=== PATIENT | female | born 1955 | race Caucasian/White ===

== ENCOUNTER 2018-02-22 06:59 | Day surgery (SDC) | payer OTHER ==
[2018-02-22] MEDS ORDERED: Propofol 200 MG/20 ML SDV ONE (07:17)
[2018-02-22] MEDS ORDERED: fentaNYL 100 MCG/2 ML SDV ONE (07:17)
[2018-02-22] MEDS ORDERED: Midazolam 1 MG/ML 2 ML SDV ONE (07:17)
[2018-02-22] MEDS ORDERED: Lidocaine 2% 5 ML SDV ONE (07:17)
[2018-02-22] MEDS ORDERED: Ketorolac 30 MG/ML SDV ONE (07:17)
[2018-02-22] MEDS ORDERED: Ondansetron 4 MG/2 ML SDV ONE (07:17)
--- NOTE | 2018-02-22 07:37 | PCM.PREANE ---
Preanesthetic Assessment - Anesthesia/Transfusion/Family Hx Anesthesia History: Prior Anesthesia Without Reaction Family History of Anesthesia Reaction: No Transfusion History: No Prior Transfusion(s) Intubation History: Unknown - Review of Systems General: No Symptoms Pulmonary: No Symptoms Cardiovascular: No Symptoms Gastrointestinal: No Symptoms Neurological: No Symptoms Other: Reports: None - Physical Assessment O2 Sat by Pulse Oximetry: 96 Respiratory Rate: 16 Vital Signs: Last Vital Signs Temp 36.5 C 02/22/18 07:16 Pulse 89 02/22/18 07:16 Resp 16 02/22/18 07:16 BP 149/71 H 02/22/18 07:16 Pulse Ox 96 02/22/18 07:16 Height: 1.6 m Weight: 71.214 kg ASA Class: 2 Mental Status: Alert & Oriented x3 Airway Class: Mallampati = 2 Dentition: Reports: Partial (upper right and left, lower middle), [place](s) (x2 upper front) Thyro-Mental Finger Breadths: 3 Mouth Opening Finger Breadths: 2 ROM/Head Extension: Full Lungs: Clear to Auscultation, Normal Respiratory Effort Cardiovascular: Regular Rate, Regular Rhythm - Allergies Allergies/Adverse Reactions: Allergies Allergy/AdvReac Type Severity Reaction Status Date / Time Sulfa (Sulfonamide Allergy Cannot Verified 02/20/18 13:52 Antibiotics) Remember - Blood Blood Available: No - Anesthesia Plan Pre-Op Medication Ordered: None - Acknowledgements Anesthesia Type Planned: MAC Pt an Appropriate Candidate for the Planned Anesthesia: Yes Alternatives and Risks of Anesthesia Discussed w Pt/Guardian: Yes Pt/Guardian Understands and Agrees with Anesthesia Plan: Yes PreAnesthesia Questionnaire Other HEENT History: wears glasses Psychiatric History: Reports: Anxiety, Depression Oncologic (Cancer) History: Reports: Cervix - Past Surgical History HEENT Surgical History: Reports: Tonsillectomy Female Surgical History: Reports: Hysterectomy Other Oncologic Surgeries/Procedures: hysterectomy - SUBSTANCE USE Smoking Status *Q: Former Smoker Tobacco Use Within Last Twelve Months: No Recreational Drug Use History: No - HOME MEDS Home Medications: Home Meds Desvenlafaxine Succinate [Desvenlafaxine Succinate ER] 100 mg PO DAILY 02/20/18 [History] PARoxetine HCl [Paxil] 20 mg PO BID 02/20/18 [History] - CURRENT (IN HOUSE) MEDS Current Meds: Current Medications Hydrocodone Bitart/Acetaminophen (Snyder 325-5 Mg) 1 tab PO Q4H PRN PRN Reason: Pain Bupivacaine HCl/Epinephrine Bitart (Marcaine 0.25%/Epinephrine 1:200,000) 10 ml INJECT ONETIME ONE Stop: 02/22/18 08:01 Cefazolin Sodium/Dextrose 2 gm (/ Premix) 50 mls @ 100 mls/hr IV ONETIME ONE Stop: 02/22/18 08:29 Lactated Ringer's (Ringers, Lactated) 1,000 mls @ 125 mls/hr IV ASDIRECTED MAKENNA Last Admin: 02/22/18 07:17 Dose: 125 mls/hr Discontinued Medications Fentanyl (Sublimaze) Confirm Administered Dose 100 mcg .ROUTE .STK-MED ONE Stop: 02/22/18 07:18 Ketorolac Tromethamine (Toradol) Confirm Administered Dose 30 mg .ROUTE .STK- MED ONE Stop: 02/22/18 07:18 Lidocaine (Xylocaine-Mpf 2%) Confirm Administered Dose 5 ml .ROUTE .STK-MED ONE Stop: 02/22/18 07:18 Midazolam HCl (Versed 1 Mg/Ml) Confirm Administered Dose 2 mg .ROUTE .STK-MED ONE Stop: 02/22/18 07:18 Ondansetron HCl (Zofran) Confirm Administered Dose 4 mg .ROUTE .STK-MED ONE Stop: 02/22/18 07:18 Propofol (Diprivan 20 Ml) Confirm Administered Dose 200 mg .ROUTE .STK-MED ONE Stop: 02/22/18 07:18
[2018-02-22] MEDS ORDERED: Bupivacaine 25%/EPINEPHrine/PF 30 ML ONE (07:42)
[2018-02-22] MEDS ORDERED: Lactated Ringers 1,000 ML IV SCH (08:00)
[2018-02-22] MEDS ORDERED: Acetaminophen/HYDROcodone 325-5 MG Tab PO PRN (08:00)
[2018-02-22] MEDS ORDERED: ceFAZolin 2 GM in Premix Bag 1 BAG IV ONE (08:00)
[2018-02-22] MEDS ORDERED: Bupivacaine 0.25%/EPINEPHrine 1:200,000 10 ML SDV INJECT ONE (08:00)
--- NOTE | 2018-02-22 08:33 | PCM.OPNOTE ---
- General Post-Op/Procedure Note Date of Surgery/Procedure: 02/22/18 Operative Procedure(s): right carpal tunnel release Pre Op Diagnosis: right carpal tunnel syndrome Post-Op Diagnosis: Same Anesthesia Technique: Local, MAC Primary Surgeon: Cat Trejo Historian Research Assistant: Sima Arzate Complications: None Condition: Good
--- NOTE | 2018-02-22 09:01 | PCM48HPAN ---
Post Anesthesia Note - EVALUATION WITHIN 48HRS OF ANESTHETIC Vital Signs in Normal Range: Yes Patient Participated in Evaluation: Yes Respiratory Function Stable: Yes Airway Patent: Yes Cardiovascular Function Stable: Yes Hydration Status Stable: Yes Pain Control Satisfactory: Yes Nausea and Vomiting Control Satisfactory: Yes Mental Status Recovered: Yes Resp Rate: 10 - COMMENTS/OBSERVATIONS Free Text/Narrative:: no anesthesia problems
--- NOTE | 2018-02-22 13:06 | OR ---
SURGEON: NALINI CRUZ MD DATE OF PROCEDURE: 02/22/2018 PREOPERATIVE DIAGNOSIS: Right carpal tunnel syndrome. POSTOPERATIVE DIAGNOSIS: Right carpal tunnel syndrome. PROCEDURE: Right carpal tunnel release. HOT BOX OPERATOR: None. ANESTHESIA: Local MAC. INDICATIONS: Ms. Botello is a 62-year-old female seen today in evaluation for right carpal tunnel release. Risks and benefits were discussed with her including, but not limited to, bleeding, infection, damage to underlying or overlying structures, possible need for future interventions, possible scarring. PROCEDURE IN DETAIL: After informed consent was obtained and placed on the chart, the patient was brought to the operating theater and laid in the supine position. After adequate local MAC anesthesia was obtained, the area was prepped and draped and a time-out was completed to confirm side and site. The 0.25% Marcaine with epinephrine was infiltrated into the area for pain control and hemostasis. The arm was exsanguinated and tourniquet insufflated to 200 mmHg. Attention was then paid to dissection of the transverse carpal ligament using a 15 blade. Dissection through the skin and subcutaneous tissues under direct visualization. Once breached, dissection was carried distally and proximally under direct visualization and complete release of the ligament was ensured. The area was copiously irrigated and the skin was closed using 5-0 nylon stitch in a horizontal mattress fashion. Wound was dressed with Xeroform fluffs and a Kerlix gauze dressing and a 2-inch Jason wrap. The patient tolerated this well. All counts and needles were correct at the end of the case. FOLLOWUP INSTRUCTIONS: The patient will see us in 10 to 14 days, sooner if any problems, questions, or concerns. She was given a prescription for pain control. NINAGGTNINA / CORY /[id number]
== END 2018-02-22 09:45 | disposition home or self-care (01) ==
LOC: MW.SDS 06:59
PROVIDERS: ATTEND Plastic Surgery
DX: G56.01 Carpal tunnel syndrome, right upper limb (principal); F32.9 Major depressive disorder, single episode, unspecified; F41.1 Generalized anxiety disorder; Z87.891 Personal history of nicotine dependence; Z79.899 Other long term (current) drug therapy; Z88.2 Allergy status to sulfonamides
CPT/HCPCS: 64721; J1885; J2250; J2405; J3010; J7120; J2704

== ENCOUNTER 2020-04-16 13:06 | Inpatient (IN) | payer MEDICARE, OTHER ==
[2020-04-16] MEDS ORDERED: Morphine 2 MG/ML Syringe IVPUSH ONE (13:29)
--- NOTE | 2020-04-16 13:29 | EDM.PDOC ---
ED HPI GENERAL MEDICAL PROBLEM - General Chief Complaint: Gastrointestinal Problem Stated Complaint: NOT KEEPING ANYTHING DOWN Time Seen by Provider: 04/16/20 13:07 Source of Information: Reports: Patient History Limitations: Reports: No Limitations - History of Present Illness INITIAL COMMENTS - FREE TEXT/NARRATIVE: HISTORY AND PHYSICAL: History of present illness: Patient is a 65-year-old female who presents to the emergency room today with complaints of abdominal pain, diarrhea and vomiting. Approximately 2 weeks ago she was diagnosed with a sinus infection and was started on Augmentin. She had her 10-day prescription refilled and started the second course of this that she felt like her sinus infection had not completely resolved. Shortly after she started to develop nausea, vomiting and severe diarrhea. She was reevaluated by her primary care provider who diagnosed her with C. difficile on 04/15/2020. She has been on oral vancomycin since yesterday. Patient denies any fever, chills, headache, change in vision, syncope or near syncope. Denies any chest pain, back pain, shortness of breath or cough. Denies any chance of , constipation or dysuria. Has not noted any blood in urine or stool. Review of systems: As per history of present illness and below otherwise all systems reviewed and negative. Past medical history: As per history of present illness and as reviewed below otherwise noncontributory. Surgical history: As per history of present illness and as reviewed below otherwise noncontributory. Social history: See social history for further information Family history: As per history of present illness and as reviewed below otherwise noncontributory. Physical exam: General: Well-developed and well-nourished 65-year-old female. Alert and oriented. Nontoxic-appearing and in no acute distress. HEENT: Atraumatic, normocephalic, pupils equal and reactive bilaterally, negative for conjunctival pallor or scleral icterus, mucous membranes dry/tacky, TMs normal bilaterally, throat clear, neck supple, nontender, trachea midline. No drooling or trismus noted. No meningeal signs. No hot potato voice noted. Lungs: Clear to auscultation, breath sounds equal bilaterally, chest nontender. Heart: S1S2, regular rate and rhythm without overt murmur Abdomen: Soft, nondistended, generalized tenderness in all 4 quadrants. Negat dianna for masses or hepatosplenomegaly. Negative for costovertebral tenderness. Skin: Intact, warm, dry. No lesions or rashes noted. Extremities: Atraumatic, moves all extremities per self without difficulty or deficits, negative for cords or calf pain. Neurovascular unremarkable. Neuro: Awake, alert, oriented. Cranial nerves II through XII unremarkable. Cerebellum unremarkable. Motor and sensory unremarkable throughout. Exam nonfocal. Notes: Patient's lab work shows no significant findings. Patient states she does not feel comfortable going home as "everything I eat or drink goes right through me". She does appear dehydrated clinically. CT shows bowel wall thickening within the right colon and cecum as well as small portion of the terminal ileum. Compatible with nonspecific colitis. I did consult Dr. Ramirez who is agreeable to keeping her for further care and management. Preadmission COVID screening is negative. Vital signs remained stable. Diagnostics: CBC, CMP, UA, lipase, stool studies, CT abdomen and pelvis Therapeutics: IV fluid, Zofran, morphine Impression: Dehydration C. difficile colitis Plan: Inpatient admission to [facility] Definitive disposition and diagnosis as appropriate pending reevaluation and review of above. abd Pain Score (Numeric/FACES): 5 - Related Data Allergies Allergy/AdvReac Type Severity Reaction Status Date / Time Sulfa (Sulfonamide Allergy Cannot Verified 04/16/20 13:26 Antibiotics) Remember Home Meds: Home Meds Desvenlafaxine Succinate [Desvenlafaxine Succinate ER] 100 mg PO DAILY 02/20/18 [History] PARoxetine HCl [Paxil] 20 mg PO BID 02/20/18 [History] Hydrocodone/Acetaminophen [Hydrocodon-Acetaminophen 5-325] 1 each PO Q4H PRN #30 tablet 02/22/18 [Rx] Past Medical History Other HEENT History: wears glasses Psychiatric History: Reports: Anxiety, Depression Oncologic (Cancer) History: Reports: Cervix - Past Surgical History HEENT Surgical History: Reports: Tonsillectomy Female Surgical History: Reports: Hysterectomy Other Oncologic Surgeries/Procedures: hysterectomy ED ROS GENERAL - Review of Systems Review Of Systems: Comprehensive ROS is negative, except as noted in HPI. ED EXAM, GI/ABD - Physical Exam Exam: See Below Course - Vital Signs Last Recorded V/S: Last Vital Signs Temp 97 F 04/16/20 13:24 Pulse 108 H 04/16/20 13:52 Resp 16 04/16/20 13:52 BP 143/74 H 04/16/20 13:52 Pulse Ox 96 04/16/20 13:52 - Orders/Labs/Meds Orders: Active Orders 24 hr Category Date Time Status CAMPYLOBACTER CULT [MREF] Stat Lab 04/16/20 13:30 Ordered OVA & PARASITES BY IMMUNOASSAY [MREF] Stat Lab 04/16/20 13:30 Ordered STOOL CULTURE/SHIGA TOXIN [MREF] Stat Lab 04/16/20 13:30 Ordered UA RFX CLYDE AND CULT IF INDIC [URIN] Stat Lab 04/16/20 13:29 Ordered Lactated Ringers [Ringers, Lactated] 1,000 ml Med 04/16/20 13:30 Active IV ASDIRECTED Medication Orders Lactated Ringer's (Ringers, Lactated) 1,000 mls @ 999 mls/hr IV ASDIRECTED MAKENNA Last Admin: 04/16/20 13:47 Dose: 999 mls/hr Documented by: [id number] Lactated Ringer's (Ringers, Lactated) 1,000 mls @ 150 mls/hr IV ASDIRECTED [facility] Labs: Laboratory Tests 04/16/20 04/16/20 04/16/20 Range/Units 13:20 13:20 14:20 WBC 10.95 (4.0-11.0) K/uL RBC 5.03 (4.30-5.90) M/uL Hgb 15.2 (12.0-16.0) g/dL Hct 45.4 (36.0-46.0) % MCV 90.3 (80.0-98.0) fL MCH 30.2 (27.0-32.0) pg MCHC 33.5 (31.0-37.0) g/dL RDW Std Deviation 46.1 (28.0-62.0) fl RDW Coeff of Alaina 14 (11.0-15.0) % Plt Count 378 (150-400) K/uL MPV 9.00 (7.40-12.00) fL Neut % (Auto) 64.3 (48.0-80.0) % Lymph % (Auto) 22.6 (16.0-40.0) % [place] % (Auto) 11.7 (0.0-15.0) % Eos % (Auto) 1.1 (0.0-7.0) % Baso % (Auto) 0.3 (0.0-1.5) % Neut # (Auto) 7.1 H (1.4-5.7) K/uL Lymph # (Auto) 2.5 H (0.6-2.4) K/uL [place] # (Auto) 1.3 H (0.0-0.8) K/uL Eos # (Auto) 0.1 (0.0-0.7) K/uL Baso # (Auto) 0.0 (0.0-0.1) K/uL Nucleated RBC % 0.0 /100WBC Nucleated RBCs # 0 K/uL Sodium 140 (136-145) mmol/L Potassium 3.4 L (3.5-5.1) mmol/L Chloride 101 (98-107) mmol/L Carbon Dioxide 27.0 (21.0-32.0) mmol/L BUN 18 (7.0-18.0) mg/dL Creatinine 0.8 (0.6-1.0) mg/dL Est Cr Clr Drug Dosing 64.76 mL/min Estimated GFR (MDRD) > 60.0 ml/min Glucose 95 (74-106) mg/dL Calcium 9.5 (8.5-10.1) mg/dL Total Bilirubin 0.3 (0.2-1.0) mg/dL AST 20 (15-37) IU/L ALT 25 (14-63) IU/L Alkaline Phosphatase 72 (46-116) U/L Total Protein 7.1 (6.4-8.2) g/dL Albumin 3.2 L (3.4-5.0) g/dL Globulin 3.9 (2.6-4.0) g/dL Albumin/Globulin Ratio 0.8 L (0.9-1.6) Lipase 199 (73-393) U/L SARS-CoV-2 RNA (RT-PCR) NEGATIVE (NEGATIVE) Meds: Medications Generic Name Dose Route Start Last Admin Trade Name Freq PRN Reason Stop Dose Admin Lactated Ringer's 1,000 mls @ 999 mls/hr 04/16/20 13:30 04/16/20 13:47 Ringers, Lactated IV 999 mls/hr ASDIRECTED MAKENNA Administration Lactated Ringer's 1,000 mls @ 150 mls/hr 04/16/20 15:15 Ringers, Lactated IV ASDIRECTED MAKENNA Discontinued Medications Generic Name Dose Route Start Last Admin Trade Name Autumn PRN Reason Stop Dose Admin Iopamidol 100 ml 04/16/20 15:25 04/16/20 15:26 Isovue Multipack-370 (76%) IVPUSH 04/16/20 15:26 100 ml ONETIME STA Administration Morphine Sulfate 2 mg 04/16/20 13:29 04/16/20 13:47 Morphine IVPUSH 04/16/20 13:30 2 mg ONETIME ONE Administration Ondansetron HCl 4 mg 04/16/20 13:34 04/16/20 13:47 Zofran IVPUSH 04/16/20 13:35 4 mg ONETIME ONE Administration Departure - Departure Time of Disposition: 15:52 Disposition: Admitted As Inpatient 65 Clinical Impression: Colitis due to Clostridium difficile, Dehydration - Discharge Information Sepsis Event Note (ED) - Focused Exam Vital Signs: Vital Signs Temp Pulse Resp BP Pulse Ox 04/16/20 13:52 108 H 16 143/74 H 96 04/16/20 13:24 97 F 110 H 16 144/77 H 93 L - My Orders Last 24 Hours: My Active Orders 04/16/20 13:29 UA RFX CLYDE AND CULT IF INDIC [URIN] Stat 04/16/20 13:30 CAMPYLOBACTER CULT [MREF] Stat OVA & PARASITES BY IMMUNOASSAY [MREF] Stat STOOL CULTURE/SHIGA TOXIN [MREF] Stat Lactated Ringers [Ringers, Lactated] 1,000 ml IV ASDIRECTED - Assessment/Plan Last 24 Hours: My Active Orders 04/16/20 13:29 UA RFX CLYDE AND CULT IF INDIC [URIN] Stat 04/16/20 13:30 CAMPYLOBACTER CULT [MREF] Stat OVA & PARASITES BY IMMUNOASSAY [MREF] Stat STOOL CULTURE/SHIGA TOXIN [MREF] Stat Lactated Ringers [Ringers, Lactated] 1,000 ml IV ASDIRECTED
[2020-04-16] MEDS ORDERED: Lactated Ringers 1,000 ML IV SCH ×3 (13:30→16:15)
[2020-04-16] MEDS ORDERED: Ondansetron 4 MG/2 ML SDV IVPUSH ONE (13:34)
[2020-04-16 13:59] LABS: BLOOD UREA NITROGEN,BUN 18 mg/dL (7.0-18.0); CHLORIDE,CL 101 mmol/L (98-107); GLUCOSE RANDOM 95 mg/dL (74-106); LIPASE 199 U/L (73-393); POTASSIUM,K 3.4 mmol/L (3.5-5.1); SODIUM,NA 140 mmol/L (136-145)
[2020-04-16] MEDS ORDERED: Iopamidol 755 MG/ML 500 ML Multipack Bottle IVPUSH STA (15:25)
--- NOTE | 2020-04-16 15:51 | CT ---
CT abdomen and pelvis Technique: Multiple axial sections were obtained from above the dome of the diaphragm inferiorly through the pubic symphysis. Intravenous contrast was utilized. No oral contrast has been given. Comparison: No prior abdominal imaging is available. Findings: Visualized lung bases show nothing acute. Liver contains no focal abnormality. Spleen appears within normal limits. Adrenal glands show no nodule. Pancreas appears within normal limits. Gallbladder contains no calcified gallstones. Kidneys show symmetric contrast enhancement. Cyst is noted within each kidney. Largest cyst measures 1.8 cm. Atherosclerotic calcification is seen within the aorta without aneurysm. No retroperitoneal adenopathy or mesenteric abnormalities are seen. Appendix not visualized. No pelvic mass or adenopathy is seen. No free fluid is seen. Bowel wall thickening noted within the right colon and cecum as well as within a small portion of the terminal ileum. Bone window settings were reviewed which shows scattered degenerative change within the spine mostly within the apophyseal joints. No acute osseous finding is appreciated. Small fat-containing umbilical hernia is noted. Impression: 1. Bowel wall thickening within the right colon and cecum as well as small portion of the terminal ileum. Findings compatible with a nonspecific colitis. 2. Other findings believed to be incidental and of no acute significance. Diagnostic code #3 This report was dictated in MDT
[2020-04-16] MEDS ORDERED: Acetaminophen 325 MG Tab PO PRN (16:02)
[2020-04-16] MEDS ORDERED: Ondansetron 4 MG/2 ML SDV IVPUSH PRN (16:02)
[2020-04-16] MEDS: Lactated Ringers 1,000 ML IV SCH ×3 (16:10→23:33)
[2020-04-16] MEDS ORDERED: Pantoprazole 40 MG Vial IV SCH (16:15)
[2020-04-16] MEDS ORDERED: Pantoprazole 40 MG in Sodium Chloride 0.9% 10 ML IV SCH (16:15)
--- NOTE | 2020-04-16 16:16 | PCM.HP.2 ---
H&P History of Present Illness - General Date of Service: 04/16/20 Admit Problem/Dx: Admission Diagnosis/Problem Admission Diagnosis/Problem Colitis due to Clostridium difficile Source of Information: Patient History Limitations: Reports: No Limitations - History of Present Illness Initial Comments - Free Text/Narative: This 64 year old with pmh of RA on Methotrexate presented to the ED with complaints of Nausea, abdominal and diarrhea. She reports she was started on Augmentin for sinus infection approximately 2 weeks ago and developed diarrhea. She was seen by PCP yesterday and tested for Cdiff which returned positive. She was given Vancomycin tabs. She reports she has not been able to keep up with the diarrhea on fluid intake. She feels as though she is so dehydrated and nervous about going home. She denies fevers or chills no chest pain or SOB. She reports the diarrhea is very watery like and nearly constant. Since in the ED she has not gone, which she reports is the longest period without a stool. She reports significant abdominal pain and ramping with stools. Denies bloody stools. She denies CAD or DM. No tobacco use or alcohol use and no recreational drug use. In the ED labwork essentially normal, She was noted to be tachycardic and given IVFs in the ED with improvement. CT of abdomen/pelvis obtained which revealed bowel wall thickening within the right colon ad cecum as well as small portion of terminal ileum, compatible with non specific colitis. She will be admitted inpatient for cdiff colitis and dehydration. COVID negative in ED abd Pain Score (Numeric/FACES): 5 - Related Data Allergies/Adverse Reactions: Allergies Allergy/AdvReac Type Severity Reaction Status Date / Time Sulfa (Sulfonamide Allergy Cannot Verified 04/16/20 13:26 Antibiotics) Remember Home Medications: Home Meds Desvenlafaxine Succinate [Desvenlafaxine Succinate ER] 100 mg PO DAILY 02/20/18 [History] PARoxetine HCl [Paxil] 20 mg PO BID 02/20/18 [History] Hydrocodone/Acetaminophen [Hydrocodon-Acetaminophen 5-325] 1 each PO Q4H PRN #30 tablet 02/22/18 [Rx] Past Medical History Other HEENT History: wears glasses Cardiovascular History: Reports: None. Denies: CAD, Hypertension, [place] Respiratory History: Reports: None. Denies: Asthma Gastrointestinal History: Denies: GERD, GI Bleed Other Gastrointestinal History: cdiff Genitourinary History: Reports: None Musculoskeletal History: Reports: RA Psychiatric History: Reports: Anxiety, Depression Endocrine/Metabolic History: Reports: None. Denies: Diabetes, Type II Oncologic (Cancer) History: Reports: Cervix - Past Surgical History HEENT Surgical History: Reports: Tonsillectomy Female Surgical History: Reports: Hysterectomy Other Oncologic Surgeries/Procedures: hysterectomy Social & Family History - Family History Family Medical History: Noncontributory - Tobacco Use Smoking Status *Q: Never Smoker - Alcohol Use Alcohol Use History: No - Living Situation & Occupation Living situation: Reports: H&P Review of Systems - Review of Systems: Review Of Systems: See Below General: Reports: Malaise, Fatigue. Denies: Fever, Chills HEENT: Reports: No Symptoms. Denies: Headaches, Sinus Congestion, Sore Throat Pulmonary: Reports: No Symptoms. Denies: Shortness of Breath Cardiovascular: Reports: No Symptoms. Denies: Chest Pain Gastrointestinal: Reports: Abdominal Pain, Diarrhea, Decreased Appetite, Nausea. Denies: Black Stool, Bloody Stool Genitourinary: Reports: No Symptoms. Denies: Dysuria, Frequency, Burning Musculoskeletal: Reports: No Symptoms Skin: Reports: No Symptoms Psychiatric: Reports: No Symptoms Neurological: Reports: No Symptoms Hematologic/Lymphatic: Reports: No Symptoms Immunologic: Reports: No Symptoms Exam - Exam Exam: See Below - Vital Signs Vital Signs: Last Vital Signs Temp 97 F 04/16/20 13:24 Pulse 101 H 04/16/20 16:02 Resp 16 04/16/20 16:02 BP 132/74 04/16/20 16:02 Pulse Ox 91 L 04/16/20 16:02 Weight: 72.575 kg - Exam General: Alert, Oriented, Cooperative Neck: Supple, Trachea Midline Lungs: Clear to Auscultation, Normal Respiratory Effort Cardiovascular: Regular Rate, Regular Rhythm GI/Abdominal Exam: Normal Bowel Sounds, Soft, No Distention, Tender (diffusely). No: Guarding Extremities: Normal Inspection, Normal Range of Motion, Non-Tender, No Pedal Edema Neurological: Cranial Nerves Intact Neuro Extensive - Mental Status: Alert, Oriented x3 Psychiatric: Alert, Normal Affect, Normal Mood - Patient Data Lab Results Last 24 hrs: Laboratory Results - last 24 hr 04/16/20 04/16/20 04/16/20 Range/Units 13:20 13:20 14:20 WBC 10.95 (4.0-11.0) K/uL RBC 5.03 (4.30-5.90) M/uL Hgb 15.2 (12.0-16.0) g/dL Hct 45.4 (36.0-46.0) % MCV 90.3 (80.0-98.0) fL MCH 30.2 (27.0-32.0) pg MCHC 33.5 (31.0-37.0) g/dL RDW Std Deviation 46.1 (28.0-62.0) fl RDW Coeff of Alaina 14 (11.0-15.0) % Plt Count 378 (150-400) K/uL MPV 9.00 (7.40-12.00) fL Neut % (Auto) 64.3 (48.0-80.0) % Lymph % (Auto) 22.6 (16.0-40.0) % Ness % (Auto) 11.7 (0.0-15.0) % Eos % (Auto) 1.1 (0.0-7.0) % Baso % (Auto) 0.3 (0.0-1.5) % Neut # (Auto) 7.1 H (1.4-5.7) K/uL Lymph # (Auto) 2.5 H (0.6-2.4) K/uL Ness # (Auto) 1.3 H (0.0-0.8) K/uL Eos # (Auto) 0.1 (0.0-0.7) K/uL Baso # (Auto) 0.0 (0.0-0.1) K/uL Nucleated RBC % 0.0 /100WBC Nucleated RBCs # 0 K/uL Sodium 140 (136-145) mmol/L Potassium 3.4 L (3.5-5.1) mmol/L Chloride 101 (98-107) mmol/L Carbon Dioxide 27.0 (21.0-32.0) mmol/L BUN 18 (7.0-18.0) mg/dL Creatinine 0.8 (0.6-1.0) mg/dL Est Cr Clr Drug Dosing 64.76 mL/min Estimated GFR (MDRD) > 60.0 ml/min Glucose 95 (74-106) mg/dL Calcium 9.5 (8.5-10.1) mg/dL Total Bilirubin 0.3 (0.2-1.0) mg/dL AST 20 (15-37) IU/L ALT 25 (14-63) IU/L Alkaline Phosphatase 72 (46-116) U/L Total Protein 7.1 (6.4-8.2) g/dL Albumin 3.2 L (3.4-5.0) g/dL Globulin 3.9 (2.6-4.0) g/dL Albumin/Globulin Ratio 0.8 L (0.9-1.6) Lipase 199 (73-393) U/L SARS-CoV-2 RNA (RT-PCR) NEGATIVE (NEGATIVE) Result Diagrams: 04/16/20 13:20 04/16/20 13:20 Sepsis Event Note - Evaluation Sepsis Screening Result: No Definite Risk - Focused Exam Vital Signs: Vital Signs Temp Pulse Resp BP Pulse Ox 04/16/20 16:02 101 H 16 132/74 91 L 04/16/20 13:52 108 H 16 143/74 H 96 04/16/20 13:24 97 F 110 H 16 144/77 H 93 L Date Exam was Performed: 04/16/20 Time Exam was Performed: 16:21 - Problem List (1) Colitis due to Clostridium difficile SNOMED Code(s): 527761765 ICD Code: A04.72 - ENTEROCOLITIS D/T CLOSTRIDIUM DIFFICILE, NOT SPCF RECUR Status: Acute Current Visit: Yes (2) Dehydration SNOMED Code(s): 47110873 ICD Code: E86.0 - DEHYDRATION Status: Acute Current Visit: Yes (3) RA (rheumatoid arthritis) SNOMED Code(s): 51905886 ICD Code: M06.9 - RHEUMATOID ARTHRITIS, UNSPECIFIED Status: Chronic Current Visit: Yes (4) Immunocompromised state due to drug therapy SNOMED Code(s): 373525005 ICD Code: Z79.899 - OTHER MANAGER TRANSITION (CURRENT) DRUG THERAPY Status: Chronic Current Visit: Yes (5) Anxiety and depression SNOMED Code(s): 569207803 ICD Code: F41.9 - ANXIETY DISORDER, UNSPECIFIED; F32.9 - MAJOR DEPRESSIVE DISORDER, SINGLE EPISODE, UNSPECIFIED Status: Chronic Current Visit: Yes Problem List Initiated/Reviewed/Updated: Yes Orders Last 24hrs: Active Orders 24 hr Category Date Time Status Admission Status [Patient Status] [ADT] Stat ADT 04/16/20 14:45 Active Intake and Output [RC] QSHIFT Care 04/16/20 16:02 Active Oxygen Therapy [RC] PRN Care 04/16/20 16:02 Active Up With Assistance [RC] ASDIRECTED Care 04/16/20 16:02 Active VTE/DVT Education [RC] PER UNIT ROUTINE Care 04/16/20 16:02 Active Vital Signs [RC] Q4H Care 04/16/20 16:02 Active Clear Liquid Diet [DIET] Diet 04/16/20 Dinner Active BASIC METABOLIC PANEL,BMP [CHEM] AM Lab 04/17/20 05:11 Ordered CAMPYLOBACTER CULT [MREF] Stat Lab 04/16/20 13:30 Ordered CBC WITH AUTO DIFF [HEME] AM Lab 04/17/20 05:11 Ordered MAGNESIUM [CHEM] AM Lab 04/17/20 05:11 Ordered OVA & PARASITES BY IMMUNOASSAY [MREF] Stat Lab 04/16/20 13:30 Ordered STOOL CULTURE/SHIGA TOXIN [MREF] Stat Lab 04/16/20 13:30 Ordered UA RFX CLYDE AND CULT IF INDIC [URIN] Stat Lab 04/16/20 16:02 Ordered Acetaminophen [Tylenol] Med 04/16/20 16:02 Active 650 mg PO Q4H PRN Lactated Ringers [Ringers, Lactated] 1,000 ml Med 04/16/20 16:06 Active IV Q6HR Ondansetron [Zofran] Med 04/16/20 16:02 Active 4 mg IVPUSH Q4H PRN Pantoprazole [ProTONIX IV] 40 mg Med 04/16/20 16:15 Active Sodium Chloride 0.9% [Normal Saline] 10 ml IV Q24H Vancomycin Med 04/16/20 18:00 Active 125 mg PO QID Resuscitation Status Routine Resus Stat 04/16/20 16:02 Ordered Medication Orders Acetaminophen (Tylenol) 650 mg PO Q4H PRN PRN Reason: Pain (Mild 1-3)/fever Pantoprazole Sodium 40 mg/ (Sodium Chloride) 10 mls @ 300 mls/hr IV Q24H [facility] Lactated Ringer's (Ringers, Lactated) 1,000 mls @ 150 mls/hr IV Q6HR [facility] Ondansetron HCl (Zofran) 4 mg IVPUSH Q4H PRN PRN Reason: Nausea Vancomycin HCl (Vancomycin) 125 mg PO QID [facility] Assessment/Plan Comment:: This 65 year old female admitted with cdiff colitis and dehydration 1. Cdiff colitis - Continue IVF resuscitation - Vancomycin 125 mg QID - Monitor for worsening, may need to consider adding Flagyl - Contact precautions - CL diet for now - Does not appear toxic, VS stable 2. Anxiety/depression - Continue home medications 3. RA: - Did not take methotrexate on Tuesday as scheduled as she wasn't feeling well - Plaquenil BID VTE prophylaxis: SCDs and ambulation Dispo: 1-2 days pending improvement.
[2020-04-16] MEDS ORDERED: Morphine 2 MG/ML Syringe IVPUSH PRN (16:30)
[2020-04-16] MEDS ORDERED: LORazepam 0.5 MG Tab PO PRN (16:33)
[2020-04-16] MEDS: Vancomycin 125 MG Cap PO SCH ×2 (17:05→23:33)
[2020-04-17] MEDS: Lactated Ringers 1,000 ML IV SCH (06:03)
[2020-04-17] MEDS: Vancomycin 125 MG Cap PO SCH ×2 (06:04→11:51)
[2020-04-17 06:27] LABS: BLOOD UREA NITROGEN,BUN 8 mg/dL (7.0-18.0); CARBON DIOXIDE,CO2 28.8 mmol/L (21.0-32.0); CHLORIDE,CL 106 mmol/L (98-107); GLUCOSE RANDOM 79 mg/dL (74-106); POTASSIUM,K 3.8 mmol/L (3.5-5.1); SODIUM,NA 141 mmol/L (136-145)
[2020-04-17] MEDS ORDERED: predniSONE 5 MG Tab PO PRN (08:18)
[2020-04-17] MEDS ORDERED: DULoxetine 60 MG Cap PO SCH (09:00)
[2020-04-17] MEDS ORDERED: Sertraline 25 MG Tab PO SCH (09:00)
--- NOTE | 2020-04-17 09:11 | PCM.DCSUM1 ---
Discharge Summary - Discharge Data Discharge Disposition: Home, Self-Care 01 Condition: Stable - Referral to Home Health Primary Care Physician: Fantasma Nathan MD - Discharge Plan Home Medications: Home Meds Desvenlafaxine Succinate [Desvenlafaxine Succinate ER] 100 mg PO DAILY 02/20/18 [History] DULoxetine HCl [Duloxetine HCl] 120 mg PO DAILY 04/16/20 [History] Hydroxychloroquine [Plaquenil] 200 mg PO BID 04/16/20 [History] Methotrexate 2.5 mg PO WEEKLY 04/16/20 [History] Sertraline HCl 25 mg PO DAILY 04/16/20 [History] Vancomycin HCl 125 mg PO QID 04/16/20 [History] predniSONE [Prednisone] 5 mg PO ACBREAKFAST PRN 04/16/20 [History] traZODone HCl [Trazodone HCl] 100 mg PO DAILY 04/16/20 [History] Patient Handouts: Clostridioides Difficile Infection, [id number] Referrals: Fantasma Nathan MD [Primary Care Provider] - 04/29/20 3:45 pm (arrive 15 minutes early with a photo ID, insurance card, and a mask. ) - Patient Data Vitals - Most Recent: Last Vital Signs Temp 36.6 C 04/17/20 07:48 Pulse 97 04/17/20 07:55 Resp 17 04/17/20 07:55 BP 133/62 04/17/20 07:55 Pulse Ox 97 04/17/20 07:55 Weight - Most Recent: 72.575 kg I&O - Last 24 hours: Intake & Output 04/16/20 04/17/20 04/17/20 22:59 06:59 14:59 Intake Total 60 2304 Output Total 200 600 Balance -140 1704 Lab Results - Last 24 hrs: Laboratory Results - last 24 hr 04/16/20 04/16/20 04/16/20 Range/Units 13:20 13:20 14:20 WBC 10.95 (4.0-11.0) K/uL RBC 5.03 (4.30-5.90) M/uL Hgb 15.2 (12.0-16.0) g/dL Hct 45.4 (36.0-46.0) % MCV 90.3 (80.0-98.0) fL MCH 30.2 (27.0-32.0) pg MCHC 33.5 (31.0-37.0) g/dL RDW Std Deviation 46.1 (28.0-62.0) fl RDW Coeff of Alaina 14 (11.0-15.0) % Plt Count 378 (150-400) K/uL MPV 9.00 (7.40-12.00) fL Neut % (Auto) 64.3 (48.0-80.0) % Lymph % (Auto) 22.6 (16.0-40.0) % Brooks % (Auto) 11.7 (0.0-15.0) % Eos % (Auto) 1.1 (0.0-7.0) % Baso % (Auto) 0.3 (0.0-1.5) % Neut # (Auto) 7.1 H (1.4-5.7) K/uL Lymph # (Auto) 2.5 H (0.6-2.4) K/uL Brooks # (Auto) 1.3 H (0.0-0.8) K/uL Eos # (Auto) 0.1 (0.0-0.7) K/uL Baso # (Auto) 0.0 (0.0-0.1) K/uL Nucleated RBC % 0.0 /100WBC Nucleated RBCs # 0 K/uL Sodium 140 (136-145) mmol/L Potassium 3.4 L (3.5-5.1) mmol/L Chloride 101 (98-107) mmol/L Carbon Dioxide 27.0 (21.0-32.0) mmol/L BUN 18 (7.0-18.0) mg/dL Creatinine 0.8 (0.6-1.0) mg/dL Est Cr Clr Drug Dosing 64.76 mL/min Estimated GFR (MDRD) > 60.0 ml/min Glucose 95 (74-106) mg/dL Calcium 9.5 (8.5-10.1) mg/dL Magnesium (1.8-2.4) mg/dL Total Bilirubin 0.3 (0.2-1.0) mg/dL AST 20 (15-37) IU/L ALT 25 (14-63) IU/L Alkaline Phosphatase 72 (46-116) U/L Total Protein 7.1 (6.4-8.2) g/dL Albumin 3.2 L (3.4-5.0) g/dL Globulin 3.9 (2.6-4.0) g/dL Albumin/Globulin Ratio 0.8 L (0.9-1.6) Lipase 199 (73-393) U/L Urine Color Urine Appearance Urine pH (5.0-8.0) Ur Specific [place] (1.001-1.035) Urine Protein (NEGATIVE) mg/dL Urine Glucose (UA) (NEGATIVE) mg/dL Urine Ketones (NEGATIVE) mg/dL Urine Occult Blood (NEGATIVE) Urine Nitrite (NEGATIVE) Urine Bilirubin (NEGATIVE) Urine Ictotest Urine Urobilinogen (<2.0) EU/dL Ur Leukocyte Esterase (NEGATIVE) SARS-CoV-2 RNA (RT-PCR) NEGATIVE (NEGATIVE) 04/16/20 04/17/20 04/17/20 Range/Units 15:00 05:32 05:32 WBC 6.61 (4.0-11.0) K/uL RBC 4.14 L (4.30-5.90) M/uL Hgb 12.2 (12.0-16.0) g/dL Hct 37.1 (36.0-46.0) % MCV 89.6 (80.0-98.0) fL MCH 29.5 (27.0-32.0) pg MCHC 32.9 (31.0-37.0) g/dL RDW Std Deviation 45.5 (28.0-62.0) fl RDW Coeff of Alaina 14 (11.0-15.0) % Plt Count 307 (150-400) K/uL MPV 8.80 (7.40-12.00) fL Neut % (Auto) 47.5 L (48.0-80.0) % Lymph % (Auto) 35.7 (16.0-40.0) % Brooks % (Auto) 12.9 (0.0-15.0) % Eos % (Auto) 3.3 (0.0-7.0) % Baso % (Auto) 0.6 (0.0-1.5) % Neut # (Auto) 3.1 (1.4-5.7) K/uL Lymph # (Auto) 2.4 (0.6-2.4) K/uL Brooks # (Auto) 0.9 H (0.0-0.8) K/uL Eos # (Auto) 0.2 (0.0-0.7) K/uL Baso # (Auto) 0.0 (0.0-0.1) K/uL Nucleated RBC % 0.0 /100WBC Nucleated RBCs # 0 K/uL Sodium 141 (136-145) mmol/L Potassium 3.8 (3.5-5.1) mmol/L Chloride 106 (98-107) mmol/L Carbon Dioxide 28.8 (21.0-32.0) mmol/L BUN 8 (7.0-18.0) mg/dL Creatinine 0.7 (0.6-1.0) mg/dL Est Cr Clr Drug Dosing 65.40 mL/min Estimated GFR (MDRD) > 60.0 ml/min Glucose 79 (74-106) mg/dL Calcium 8.8 (8.5-10.1) mg/dL Magnesium 1.9 (1.8-2.4) mg/dL Total Bilirubin (0.2-1.0) mg/dL AST (15-37) IU/L ALT (14-63) IU/L Alkaline Phosphatase (46-116) U/L Total Protein (6.4-8.2) g/dL Albumin (3.4-5.0) g/dL Globulin (2.6-4.0) g/dL Albumin/Globulin Ratio (0.9-1.6) Lipase (73-393) U/L Urine Color YELLOW Urine Appearance CLEAR Urine pH 6.0 (5.0-8.0) Ur Specific [place] >= 1.030 (1.001-1.035) Urine Protein NEGATIVE (NEGATIVE) mg/dL Urine Glucose (UA) NEGATIVE (NEGATIVE) mg/dL Urine Ketones 40 H (NEGATIVE) mg/dL Urine Occult Blood NEGATIVE (NEGATIVE) Urine Nitrite NEGATIVE (NEGATIVE) Urine Bilirubin SMALL H (NEGATIVE) Urine Ictotest NEGATIVE Urine Urobilinogen 0.2 (<2.0) EU/dL Ur Leukocyte Esterase NEGATIVE (NEGATIVE) SARS-CoV-2 RNA (RT-PCR) (NEGATIVE) Med Orders - Current: Current Medications Acetaminophen (Tylenol) 650 mg PO Q4H PRN PRN Reason: Pain (Mild 1-3)/fever Duloxetine HCl (Cymbalta) 120 mg PO DAILY [facility] Pantoprazole Sodium 40 mg/ (Sodium Chloride) 10 mls @ 300 mls/hr IV Q24H [facility] Last Admin: 04/16/20 16:35 Dose: 300 mls/hr Documented by: Lactated Ringer's (Ringers, Lactated) 1,000 mls @ 150 mls/hr IV Q6HR [facility] Last Admin: 04/17/20 06:03 Dose: 150 mls/hr Documented by: Lorazepam (Ativan) 0.5 mg PO BID PRN PRN Reason: Anxiety Morphine Sulfate (Morphine) 2 mg IVPUSH Q3H PRN PRN Reason: Pain Last Admin: 04/16/20 23:33 Dose: 2 mg Documented by: Ondansetron HCl (Zofran) 4 mg IVPUSH Q4H PRN PRN Reason: Nausea Prednisone (Prednisone) 5 mg PO ACBREAKFAST PRN PRN Reason: Pain Sertraline HCl (Zoloft) 25 mg PO DAILY [facility] Trazodone HCl (Trazodone) 100 mg PO BEDTIME [facility] Vancomycin HCl (Vancomycin) 125 mg PO QID [facility] Last Admin: 04/17/20 06:04 Dose: 125 mg Documented by: Discontinued Medications Lactated Ringer's (Ringers, Lactated) 1,000 mls @ 999 mls/hr IV ASDIRECTED [facility] Last Admin: 04/16/20 13:47 Dose: 999 mls/hr Documented by: Lactated Ringer's (Ringers, Lactated) 1,000 mls @ 150 mls/hr IV ASDIRECTED [facility] Lactated Ringer's (Ringers, Lactated) 1,000 mls @ 150 mls/hr IV ASDIRECTED [facility] Iopamidol (Isovue Multipack-370 (76%)) 100 ml IVPUSH ONETIME STA Stop: 04/16/20 15:26 Last Admin: 04/16/20 15:26 Dose: 100 ml Documented by: Morphine Sulfate (Morphine) 2 mg IVPUSH ONETIME ONE Stop: 04/16/20 13:30 Last Admin: 04/16/20 13:47 Dose: 2 mg Documented by: Ondansetron HCl (Zofran) 4 mg IVPUSH ONETIME ONE Stop: 04/16/20 13:35 Last Admin: 04/16/20 13:47 Dose: 4 mg Documented by: Pantoprazole Sodium (Protonix Iv) 40 mg IV Q24H [facility]
[2020-04-17] MEDS ORDERED: traZODone 50 MG Tab PO SCH (21:00)
== END 2020-04-17 12:11 | disposition home or self-care (01) | DRG 641 ==
LOC: MW.ED 13:06 → MW.MS 14:45
PROVIDERS: ADMIT Student in an Organized Health Care Education/Training Program; ATTEND Student in an Organized Health Care Education/Training Program
DX: E86.0 Dehydration (principal); A04.72 Enterocolitis due to Clostridium difficile, not specified as recurrent; M06.9 Rheumatoid arthritis, unspecified; Z20.828 Contact with and (suspected) exposure to other viral communicable diseases; Z85.41 Personal history of malignant neoplasm of cervix uteri; F41.9 Anxiety disorder, unspecified; Z82.2 Family history of deafness and hearing loss; F32.9 Major depressive disorder, single episode, unspecified; Z88.2 Allergy status to sulfonamides; Z79.899 Other long term (current) drug therapy; Z90.710 Acquired absence of both cervix and uterus
CPT/HCPCS: 36415; 74177; 74177-26; 80048; 80053; 81003; 83690; 83735; 85025; 87045; 87046; 87328; 87329; 87899; 96361; 96374; 96375; 99285-25; A9270-GY; C9113; J2270; J2405; J7050; J7120; Q9967; U0002

== ENCOUNTER 2022-09-23 08:17 | Day surgery (SDC) | payer MEDICARE, OTHER ==
[~2022-09-23 08:17] MED LIST: Lactated Ringers 1,000 ML IV SCH; Lidocaine 2% 5 ML SDV ONE; Propofol 200 MG/20 ML SDV ONE; Sodium Chloride 0.9% 10 ML Syringe FLUSH PRN; Sodium Chloride 0.9% 2.5 ML Syringe FLUSH PRN; Sodium Chloride 0.9% 20 ML SDV IV PRN; fentaNYL 100 MCG/2 ML SDV ONE
[2022-09-23] MEDS ORDERED: cefOXitin 100 ML ONE (09:38)
[2022-09-23] MEDS ORDERED: Glucagon,Human Recombinant 1 MG Vial ONE (10:09)
== END 2022-09-23 11:10 | disposition home or self-care (01) ==
LOC: MW.SDS 08:17
PROVIDERS: ATTEND Surgery
DX: Z12.11 Encounter for screening for malignant neoplasm of colon (principal); K62.1 Rectal polyp; K63.5 Polyp of colon; K57.30 Diverticulosis of large intestine without perforation or abscess without bleeding; K64.8 Other hemorrhoids; F41.1 Generalized anxiety disorder; F32.A Depression, unspecified; K58.9 Irritable bowel syndrome, unspecified; Z80.0 Family history of malignant neoplasm of digestive organs; Z88.2 Allergy status to sulfonamides; Z79.899 Other long term (current) drug therapy; Z98.890 Other specified postprocedural states; Z90.710 Acquired absence of both cervix and uterus
CPT/HCPCS: 45380; J0694; J1610; J2704; J3010; J7120